=== PATIENT | female | born 2000 | race Caucasian/White ===

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

== ENCOUNTER 2020-06-19 09:28 | Outpatient (CLI) | payer OTHER | END 2020-06-19 09:43 | disposition home or self-care (01) | LOC: SONOGRAMA 09:28 | PROVIDERS: ATTEND Obstetrics & Gynecology Maternal & Fetal Medicine | DX: N92.0 Excessive and frequent menstruation with regular cycle (principal); D64.89 Other specified anemias ==